=== PATIENT | female | born 1985 | race African-American/Black ===

== ENCOUNTER 2021-03-20 00:09 | Emergency (ER) | payer SELFPAY ==
--- NOTE | 2021-03-20 00:26 | NUR ---
called pt in waiting room. no one responded. per admitting pt stepped out.
--- NOTE | 2021-03-20 00:45 | NUR ---
2nd attempt: called pt in wr. no one responded.
--- NOTE | 2021-03-20 01:13 | NUR ---
3rd attempt: called pt in wr. no one responded.
== END 2021-03-20 01:19 | disposition left against medical advice (07) ==
LOC: ER 00:14
DX: Z53.21 Procedure and treatment not carried out due to patient leaving prior to being seen by health care provider (principal)
CPT/HCPCS: J7050

== ENCOUNTER 2021-03-20 02:51 | Emergency (ER) | payer SELFPAY ==
[~2021-03-20] VITALS: Ht 165.1 cm; Wt 56.7 kg
[2021-03-20 03:11] VITALS: BP 112/61
== END 2021-03-20 03:29 | disposition home or self-care (01) ==
LOC: ER 02:52
DX: Z71.1 Person with feared health complaint in whom no diagnosis is made (principal); Z60.2 Problems related to living alone